=== PATIENT | male | born 1950 | race Caucasian/White ===

== ENCOUNTER 2024-05-07 17:01 | Emergency (ER) | payer OTHER, SELFPAY ==
[2024-05-07 17:18] VITALS: BP 187/95
--- NOTE | 2024-05-07 18:11 | ED.GENMED ---
History of Present Illness
General
Chief Complaint: Back Pain
Source: patient
Exam Limitations: none
Time Seen by Provider: 05/07/24 17:52
History of Present Illness
History of Present Illness:
This is a 74 year old male that comes in with c/o left sided low back pain. State that he started with some discomfort on Monday. States that he was feeling better and he went out yesterday. Then today he started with left sided low back pain and he
can hardly move around. States that there was no injury. States that he Took Aleve 3 tablets at 4pm. States that he occasionally felt dizzy with the pain and nauseated. Denies any fever, chills, chest pain, SOB, abd pain, vomiting, diarrhea,
headache, urinary burning.
Past History
Past History
ED Past Medical History: Asthma, Cancer, GERD, HTN and Other (Sleep apnea, Ulcers, Arthritis spine)
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
Social History
Tobacco: Former smoker
Alcohol: Occasional
Drug: None
Personal: (Same sex)
Living: with family
Review of Systems
Review of Systems
All Other Systems: ROS reviewed and negative except as documented in HPI and ROS
Constitutional: Reports no symptoms; Denies fever or chills
EENT: Reports no symptoms
Respiratory: Reports no symptoms; Denies cough or trouble breathing
Cardiac: Reports no symptoms; Denies chest pain
ABD/GI: Reports nausea; Denies abdominal pain, vomiting or diarrhea
: Reports no symptoms; Denies dysuria, frequency or urgency
Musculoskeletal: Reports back pain (Left sided low back pain)
Skin: Reports no symptoms
Neurological: Reports dizzy; Denies headache
Psychiatric: Reports no symptoms
Phy Exam
General Physical Exam
General Presentation: mild distress
General age: appears stated age
General Skin: warm and dry
General Habitus: elderly and obese
General Mental: alert
General Hydration: appears well hydrated
ENT Exam
ENT Exam: TM's normal, pharynx normal and neck supple
Eye Exam
Eye Exam: EOMI
Cardiovascular Exam
Cardiovascular Exam: regular rate/rhythm, no edema and normal peripheral pulses
Pulmonary Exam
Pulmonary Exam: lungs clear, no respiratory distress, no rales, chest non tender, no crackles, no rhonchi, no wheezing and no cough
Gastrointestinal Exam
Gastrointestinal Exam: normal bowel sounds, non tender, soft, no organomegaly, no pulsatile mass, non distended and other (Obese)
Musculoskeletal Exam
Musculoskeletal Exam: no edema and back tenderness (Spinal tenderness lumbar spine with tenderness to the left lateral area. Negative for discomfort with straight leg raise, going up on his toes or turning side to side. Negative for discomfort with
bending forward. )
Skin Exam
Skin Exam: normal color, warm/dry, no rash and no petechia
Psychiatric Exam
Psychiatric Exam: normal mood/affect
Course
Orders/Labs/Results
Orders:
Orders
05/07/24 18:09
Acetaminophen 1000MG/100Ml [Ofirmev] 1,000 mg in 100 ml IV ONCE
Acetaminophen IV Indication:: ED Narcotic Naive Pt-ONCE
Cyclobenzaprine HCl [Flexeril] 10 mg PO NOW STA
Dexamethasone Sod Phosphate [Decadron] 20 mg IV NOW STA
Lumbar Spine Complete, 4 View [CR Lumbar Spine Comp Min 4 Vw*] Urgent
Comment:
Reason For Exam: Left sided low back pain
Vital Signs
Initial and Last Documented VS:
Initial Vital Signs
Temp Pulse Resp BP Pulse Ox
98.9 F 82 18 187/95 96
05/07/24 17:18 05/07/24 17:18 05/07/24 17:18 05/07/24 17:18 05/07/24 17:18
Last Documented Vital Signs
Temp Pulse Resp BP Pulse Ox
98.9 F 82 18 187/95 96
05/07/24 17:18 05/07/24 17:18 05/07/24 17:18 05/07/24 17:18 05/07/24 17:18
MDM/Problems Addressed
Differential Diagnosis Includes:
Musculoskeletal back pain, Lumbar degenerative changes
MDM/Problems Addressed:
This is a 74 year old male that comes in with c/o left sided low back pain. Denies any injury or falls
Will get X-ray and medicated for pain.
Back into see patient. Patient states that he is feeling some better as long as he doesn't move. Explained to patient that he will be started on a steroid for the next 5 days. Patient to use Tylenol and Ibuprofen and alternate them. Patient can use
Lidoderm patches or heat and ice to help with pain. Patient to follow up with the family doctor or the payment specialist. Patient to return with any concerns.
Chronic conditions affecting care:
Spinal arthritis
Acute Exacerbation and/or Progression of Chronic Illness:
Spinal arthritis.
*Radiology
Radiology exam reviewed: radiology read reviewed (Lumbar-Hypertrophic degenerative changes with significant progression. No findings to suggest lumbar vertebral compression Fracture. )
*Pulse Oximetry
Patient hypoxic: no
*EKG
Interpreted by ED Provider?: NA
Rate: EKG- N/A
*Interrelated Special Education Teacher Interpretation
Rate: Interrelated Special Education Teacher- N/A
*Critical Care Note
Total Time (30-74mins, 75-104mins- exclusive of procedures): Not Applicable
ED Attending Note
-
Portions of this chart may have been created with voice recognition software.� Occasional wrong word or��sound alike� substitutions may have occurred due to the inherent limitations of voice recognition software.
Discharge Plan
Departure
Patient Disposition: Home (Routine Discharge)
Date of Disposition: 05/07/24
Time of Disposition: 21:01
Patient with high blood pressure during this ER visit?: Yes
Condition: Good
Covid-19: Not Applicable
Discharge Problem:
Low back pain
Instructions: Low Back Pain (DC), BLOOD PRESSURE
Prescriptions:
New
cyclobenzaprine 10 mg tablet
10 mg PO Q8H PRN (Reason: Muscle relaxer) Qty: 12 0RF
prednisone 20 mg tablet
40 mg PO DAILY Qty: 10 0RF
No Action
pantoprazole 40 MG tablet,delayed release (DR/EC)
40 mg PO Q72H
albuterol sulfate 1 PUFF HFA aerosol inhaler
1 puff inhalation PRN PRN (Reason: sob)
loratadine 10 MG tablet
10 mg PO DAILY Qty: 15 0RF
atorvastatin 20 MG tablet
20 mg PO DAILY
amlodipine 5 MG tablet
5 mg PO DAILY
[id number]-lycopen-lutein [Centrum Silver] 1 EACH tablet
1 ea PO DAILY
Red Yeast Rice
2 tab PO DAILY
fluticasone propionate [Flovent HFA] 1 PUFF HFA aerosol inhaler
2 puff inhalation R BID Qty: 1 0RF
ipratropium-albuterol 0.5 mg-3 mg(2.5 mg base)/3 mL solution for nebulization
3 ml inhalation Q4H PRN (Reason: shortness of breath or wheezing) Qty: 90 0RF
prednisone 20 mg tablet
20 mg PO BID Qty: 14 0RF
Referrals:
Stefano Rosario MD [Active] - As needed
Kwaku Brooks MD [Family Provider] - Follow up in 5-7 days
Activity Restrictions/Additional Instructions:
As discussed, your X-ray shows that your degenerative changes in the lumbar spine have increased. You have been given the name of an payment specialist for further evaluation. You may need an MRI. You may use Tylenol 1000mg every 6 hours for pain
and alternate this with Ibuprofen 600mg every 6 hours with food for pain. So if you take Tylenol at 9am, the Ibuprofen will be due at 12 noon and then the Tylenol at 3pm and Ibuprofen at 6pm. You have had 2 prescriptions sent to your Pharmacy. The
first is for a steroid to help decrease the inflammation. This is only once daily for 5 days. The second Prescription for for Flexeril which is a muscle relaxer. Please take this at bedtime as this will make you tired. Follow up with the family
doctor as needed. You can use Heat or ice to the low back or Lidoderm patches to help with pain control. IF YOU HAVE ANY OTHER CONCERNS PLEASE RETURN TO THE EMERGENCY ROOM .
Interventions
Interventions:
*Risk Screen - Suicide Last Done: 05/07/24 18:47
*General Assessment Last Done: 05/07/24 18:47
*Neglect/Abuse Screening Last Done: 05/07/24 18:47
ED- Fall Risk Assessment Last Done: 05/07/24 18:47
*ED COVID-19 Vaccine History Last Done: 05/07/24 18:47
ED-Musculoskeletal Assessment Last Done: 05/07/24 18:46
Discharge Date and Time
Print Language: ANGUILLAN
[2024-05-07] MEDS: FLEXERIL 10 MG PO (18:19)
[2024-05-07] MEDS: DECADRON 20 MG IV (18:21)
[2024-05-07] MEDS: OFIRMEV 100 IV (18:24)
[2024-05-07] MEDS: DILAUDID 1 MG IV (21:02)
[2024-05-07 21:04] VITALS: BP 149/89
== END 2024-05-07 21:19 | disposition home or self-care (01) ==
LOC: EMR 17:01
PROVIDERS: EMERGENCY PHYSICIAN Emergency Medicine; FAMILY PHYSICIAN Family Medicine
DX: M54.50 Low back pain, unspecified (principal); I10 Essential (primary) hypertension; Z87.891 Personal history of nicotine dependence
CPT/HCPCS: 99284; 96374; 96375 ×2; 72110

== ENCOUNTER → 2024-07-24 06:21 | Day surgery (SDC) | payer OTHER, SELFPAY | LOC: GI 06:21 | PROVIDERS: ATTENDING PHYSICIAN Internal Medicine Gastroenterology | DX: Z12.11 Encounter for screening for malignant neoplasm of colon (principal); K57.30 Diverticulosis of large intestine without perforation or abscess without bleeding; K64.8 Other hemorrhoids | CPT/HCPCS: G0121 ==

== ENCOUNTER → 2024-12-02 14:06 | Outpatient (REF) | payer OTHER, SELFPAY | LOC: HWRAD 14:06 | PROVIDERS: ATTENDING PHYSICIAN Family Medicine | DX: M25.561 Pain in right knee (principal); M25.562 Pain in left knee | CPT/HCPCS: 73564 ==

== ENCOUNTER → 2024-12-06 14:56 | Outpatient (REF) | payer OTHER, SELFPAY | LOC: MRI 3T 14:56 | PROVIDERS: ATTENDING PHYSICIAN Otolaryngology; FAMILY PHYSICIAN Family Medicine; REFERRING PHYSICIAN Internal Medicine Hematology & Oncology | DX: H90.A22 Sensorineural hearing loss, unilateral, left ear, with restricted hearing on the contralateral side (principal) | CPT/HCPCS: 70553; A9575 ==

== ENCOUNTER 2025-06-07 13:45 | Emergency (ER) | payer OTHER, SELFPAY ==
[2025-06-07 13:52] VITALS: BP 154/81
[2025-06-07 15:59] VITALS: BMI 37.7
--- NOTE | 2025-06-07 16:16 | ED.GENMED ---
History of Present Illness
General
Chief Complaint: Musculo-Skeletal Complaint
Source: patient
Exam Limitations: none
Time Seen by Provider: 06/07/25 15:59
History of Present Illness
History of Present Illness:
75yoM with a history of hypertension, hyperlipidemia, DELANEY, obesity, and asthma presenting for evaluation of right knee pain. Patient stood up about 4 to 5 hours ago and had a sudden onset of pain in the knee. No specific trauma. Pain is located
on the medial aspect of the knee. Pain improves if he flexes the knee and worsens with extension and weightbearing. No paresthesias. No calf pain or leg swelling.
Past History
Past History
ED Past Medical History: Asthma, Cancer, GERD, HTN and Other (Sleep apnea, Ulcers, Arthritis spine)
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
Social History
Tobacco: Former smoker
Alcohol: Occasional
Drug: None
Personal: (Same sex)
Living: with family
Phy Exam
General Physical Exam
General Presentation: well appearing and no apparent distress
General Skin: warm and dry
General Habitus: normal
General Mental: alert
ENT Exam
ENT Exam: normocephalic
Pulmonary Exam
Pulmonary Exam: no respiratory distress
Neurological Exam
Neurological Exam: alert
Annie Coma Scale
Eye Opening: Spontaneous
Verbal Response: Oriented
Motor Response: Obeys Commands
GCS Total Score: 15
Musculoskeletal Exam
Musculoskeletal Exam: other (R knee: No skin changes or significant swelling. +Tenderness to medial joint line. Able to flex to about 100 degrees, pain elicited with knee extension. 2+ DP pulse.)
Skin Exam
Skin Exam: normal color and warm/dry
Psychiatric Exam
Psychiatric Exam: normal mood/affect
Course
Orders/Labs/Results
Orders:
Orders
06/07/25 13:54
Knee, Right 4 or More Views [CR Knee- Right 4 Or More View*] Urgent
Comment:
Reason For Exam: pain
06/07/25 16:15
Crutches-Treatment ONCE
Ketorolac [Toradol] 30 mg IM NOW STA
Vital Signs
Initial and Last Documented VS:
Initial Vital Signs
Temp Pulse Resp BP Pulse Ox
98.2 F 84 16 154/81 95
06/07/25 13:52 06/07/25 13:52 06/07/25 13:52 06/07/25 13:52 06/07/25 13:52
Last Documented Vital Signs
Temp Pulse Resp BP Pulse Ox
98.2 F 84 16 154/81 95
06/07/25 13:52 06/07/25 13:52 06/07/25 13:52 06/07/25 13:52 06/07/25 16:17
MDM/Problems Addressed
Differential Diagnosis Includes:
75yoM here with R knee pain that started after standing up. There is medial joint line tenderness on exam. Pain noted on extension. RLE is neurovascularly intact. Differential diagnosis includes: sprain, meniscus injury, osteoarthritis, less likely
fracture, no clinical evidence of septic arthritis
X-rays obtained which are negative for fractures. Moderate osteoarthritis noted. Suspect possible ligamentous injury. IM Toradol given for pain. Knee immobilizer initially ordered which patient declines given difficulty with knee extension. Deyvi wrap
and crutches given. Supportive care discussed and advised f/u with orthopedics.
*Pulse Oximetry
SaO2: 95
Oxygen Mode of Delivery: Room air
Patient hypoxic: no (95%)
*Critical Care Note
Total Time (30-74mins, 75-104mins- exclusive of procedures): Not Applicable
ED Attending Note
-
Portions of this chart may have been created with voice recognition software.� Occasional wrong word or��sound alike� substitutions may have occurred due to the inherent limitations of voice recognition software.
Discharge Plan
Departure
Patient Disposition: Home (Routine Discharge)
Date of Disposition: 06/07/25
Time of Disposition: 16:18
Patient with high blood pressure during this ER visit?: Yes
Discharge Problem:
Acute pain of right knee
Instructions: Knee Pain (DC)
Prescriptions:
No Action
pantoprazole 40 MG tablet,delayed release (DR/EC)
40 mg PO Q72H
albuterol sulfate 1 PUFF HFA aerosol inhaler
1 puff inhalation PRN PRN (Reason: sob)
loratadine 10 MG tablet
10 mg PO DAILY Qty: 15 0RF
atorvastatin 20 MG tablet
20 mg PO DAILY
amlodipine 5 MG tablet
5 mg PO DAILY
mklpkpdw-hgj-FR-lycopen-lutein [Centrum Silver] 1 EACH tablet
1 ea PO DAILY
Red Yeast Rice
2 tab PO DAILY
fluticasone propionate [Flovent HFA] 1 PUFF HFA aerosol inhaler
2 puff inhalation R BID Qty: 1 0RF
ipratropium-albuterol 0.5 mg-3 mg(2.5 mg base)/3 mL solution for nebulization
3 ml inhalation Q4H PRN (Reason: shortness of breath or wheezing) Qty: 90 0RF
prednisone 20 mg tablet
20 mg PO BID Qty: 14 0RF
cyclobenzaprine 10 mg tablet
10 mg PO Q8H PRN (Reason: Muscle relaxer) Qty: 12 0RF
prednisone 20 mg tablet
40 mg PO DAILY Qty: 10 0RF
Referrals:
Kwaku Brooks MD [Family Provider, Family Practice]
Marvin Solano MD [Active, Orthopedics]
Activity Restrictions/Additional Instructions:
Apply ice to affected area. Take Tylenol and ibuprofen as needed for pain. Wear knee immobilizer for support.
Please call on Monday to schedule a follow-up appointment with orthopedics.
Interventions
Interventions:
*Risk Screen - Suicide Last Done: 06/07/25 13:52
*General Assessment Last Done: 06/07/25 16:02
*Neglect/Abuse Screening Last Done: 06/07/25 13:52
*ED- Fall Risk Assessment Last Done: 06/07/25 16:02
*ED COVID-19 Vaccine History Last Done: 06/07/25 16:02
*Nursing Disposition Last Done: 06/07/25 16:52
ED-Musculoskeletal Assessment Last Done: 06/07/25 16:02
Discharge Date and Time
Discharge Date/Time: 06/07/25 16:55
Print Language: PALESTINIAN
[2025-06-07] MEDS: TORADOL 30 MG IM (16:35)
== END 2025-06-07 16:55 | disposition home or self-care (01) ==
LOC: EMR 13:45
PROVIDERS: EMERGENCY PHYSICIAN Emergency Medicine; FAMILY PHYSICIAN Family Medicine
DX: M25.561 Pain in right knee (principal); M17.11 Unilateral primary osteoarthritis, right knee; I10 Essential (primary) hypertension; E78.5 Hyperlipidemia, unspecified; G47.33 Obstructive sleep apnea (adult) (pediatric); J45.909 Unspecified asthma, uncomplicated; E66.9 Obesity, unspecified; Z68.37 Body mass index [BMI] 37.0-37.9, adult; K21.9 Gastro-esophageal reflux disease without esophagitis; M47.819 Spondylosis without myelopathy or radiculopathy, site unspecified; Z87.891 Personal history of nicotine dependence; Z85.831 Personal history of malignant neoplasm of soft tissue
CPT/HCPCS: 99284; 96372; 73564

== ENCOUNTER → 2025-08-21 12:42 | Outpatient (REF) | payer OTHER, SELFPAY | LOC: HWRCS 12:42 | PROVIDERS: ATTENDING PHYSICIAN Internal Medicine Cardiovascular Disease; FAMILY PHYSICIAN Family Medicine | DX: R01.1 Cardiac murmur, unspecified (principal) | CPT/HCPCS: 93306 ==